=== PATIENT | male | born 1965 | race Caucasian/White ===

== ENCOUNTER → 2016-09-24 | Outpatient (CLI) | payer OTHER ==
--- NOTE | 2016-09-24 15:36 | XR ---
EXAMINATION TYPE: XR hand complete LT DATE OF EXAM: 09/24/2016 3:31 PM COMPARISON: NONE HISTORY: Pain TECHNIQUE: Three views are submitted. FINDINGS: The osseous structures are intact. The joint spaces are preserved and there is no acute fracture or dislocation. Arthropathy of the radioulnar joint noted. IMPRESSION: 1. No definite acute fracture or dislocation if symptoms persist, follow-up study in 7 to 10 days wo uld be suggested
--- NOTE | 2016-09-24 15:37 | XR ---
EXAMINATION TYPE: XR sacrum coccyx DATE OF EXAM: 09/24/2016 3:31 PM COMPARISON: NONE HISTORY: Pain Three views are submitted. Sacrum is intact. SI joints are symmetric. Coccyx appears to be intact. Visualized pelvic structures intact. IMPRESSION: 1. No acute fracture.
--- NOTE | 2016-09-24 15:38 | XR ---
EXAM TYPE: LUMBAR SPINE X RAY SERIES COMPARISON: NONE HISTORY: Pain TECHNIQUE: 3 views are submitted. FINDINGS: Alignment is anatomic. The pedicles are intact. The transverse processes are intact. There is no s pondylolysis or spondylolisthesis. Hypertrophic change of the facets noted. Anterior hypertrophic sp urs are seen involving the thoracolumbar junction upper lumbar spine. IMPRESSION: 1. No compression deformity. Hypertrophic change and facet arthropathy at multiple levels.
--- NOTE | 2016-09-24 15:38 | XR ---
EXAMINATION TYPE: XR pelvis AP view DATE OF EXAM ORDERED: 09/24/2016 3:31 PM HISTORY: S30.0XXA contusion lower back pelvis S60.22A hand contusion. COMPARISON: None. FINDINGS: No fracture, dislocation or other acute osseous lesion is seen. There is a pseudocyst in t he right humeral head. IMPRESSION: NO ACUTE OSSEOUS LESION.
== END | disposition home or self-care (01) ==
LOC: RADXRMAIN 15:03
PROVIDERS: ATTEND Emergency Medicine
DX: M46.86 Other specified inflammatory spondylopathies, lumbar region (principal); S60.222A Contusion of left hand, initial encounter; S30.0XXA Contusion of lower back and pelvis, initial encounter
CPT/HCPCS: 72100; 72170; 72220

== ENCOUNTER → 2016-09-30 | Outpatient (CLI) | payer OTHER ==
--- NOTE | 2016-09-30 10:07 | XR ---
EXAMINATION TYPE: XR wrist complete LT DATE OF EXAM: 09/30/2016 10:03 AM COMPARISON: NONE HISTORY: Pain and swelling TECHNIQUE: Four views submitted. FINDINGS: The osseous structures are intact. Hypertrophic change and narrowing of the radioulnar joint. And the re is no acute fracture or dislocation. Tiny bony density along the volar aspect of the wrist. IMPRESSION: 1. Tiny bony density along the volar aspect of the wrist. Recommend follow-up CT or MRI to assess for tiny chip or avulsion fracture.
== END | disposition home or self-care (01) ==
LOC: RADXRMAIN 09:40
PROVIDERS: ATTEND Emergency Medicine
DX: R93.7 Abnormal findings on diagnostic imaging of other parts of musculoskeletal system (principal)

== ENCOUNTER → 2016-10-08 | Outpatient (CLI) | payer OTHER ==
--- NOTE | 2016-10-09 11:48 | MR ---
MR left wrist HISTORY: Left wrist pain, lump Multiplanar multisequence imaging through the left wrist correlated to plain film 30 Sep 2016 There is a focal area of increased signal on T1 and T2-weighted sequences within the region of the th enar eminence which is somewhat poorly demarcated measuring approximately 2.2 x 1.4 x 1 cm at the lev el of the overlying skin marker noting the patient's symptom site. Bone marrow signal is maintained w ith the exception of some focal increased signal at the proximal lunate may represent a small geode. Tracheal fibrocartilage, lunotriquetral, scapholunate ligaments thought to be intact. Flexor and exte nsor tendons are intact. Focal fluid signal present at the level distal to the ulna slightly ball are measuring approximately 14 mm x 7 mm x 9 mm shows increased signal on T1 and T2-weighted sequences m ay represent a ganglion cyst. Some erosion is present at the triquetrum proximally, this may represen t ganglion cyst. Smaller cystic focus present adjacent to the pisiform. Mild arthropathy changes as n oted on plain film. IMPRESSION: Findings likely represent focal hematoma corresponding to patient's pain and trauma, foll ow-up clinically. Possible ganglion cyst.
== END | disposition home or self-care (01) ==
LOC: RADMRIMAIN 18:44
PROVIDERS: ATTEND Emergency Medicine
DX: S60.222D Contusion of left hand, subsequent encounter (principal); S30.0XXD Contusion of lower back and pelvis, subsequent encounter

== ENCOUNTER 2018-05-01 07:02 | Day surgery (SDC) | payer BC ==
[2018-04-27 11:35] VITALS: BMI 33.9
[~2018-05-01 07:02] MED LIST: LACTATED RINGERS 1,000 ML IV SCH
[2018-05-01 07:21] VITALS: RESP 16; TEMP 98
[2018-05-01 07:35] LABS: Glucose,Whole Blood 127 mg/dL (75-99)
[2018-05-01] MEDS ORDERED: LIDOCAINE 1% 20 ML VIAL (10MG/ML) FOR IV START INTRADERMA ONE (07:40)
[2018-05-01] MEDS ORDERED: PROPOFOL 10 MG/ML 20 ML VIAL IV ONE (08:27)
--- NOTE | 2018-05-01 08:34 | P.GSHP ---
History of Present Illness H&P Date: 05/01/18 Chief Complaint: Screening colonoscopy This is a 52-year-old male who presents today for screening colonoscopy. Patient denies any significant GI complaints. Past Medical History Past Medical History: Diabetes Mellitus, Hypertension History of Any Multi-Drug Resistant Organisms: None Reported Additional Past Surgical History / Comment(s): VASECTOMY Past Anesthesia/Blood Transfusion Reactions: No Reported Reaction Smoking Status: Never smoker - Past Family History Mother Family Medical History: No Reported History Medications and Allergies Home Medications Medication Instructions Recorded Confirmed Type amLODIPine BESYLATE/BENAZEPRIL 1 cap PO DAILY 04/27/18 05/01/18 History [amLODIPine BESYLATE/BENAZEPRIL 5-40 mg] metFORMIN HCL [Glucophage] 500 mg PO DAILY 04/27/18 05/01/18 History Allergies Allergy/AdvReac Type Severity Reaction Status Date / Time Penicillins Allergy Unknown Verified 05/01/18 07:20 Childhood Surgical - Exam Vital Signs Temp Pulse Resp BP Pulse Ox 98.0 F 82 16 167/96 96 05/01/18 07:15 05/01/18 07:15 05/01/18 07:15 05/01/18 07:15 05/01/18 07:15 - General well developed, well nourished, no distress - Eyes PERRL - ENT normal pinna - Neck no masses - Respiratory normal expansion - Cardiovascular Rhythm: regular - Abdomen Abdomen: soft, non tender Results - Labs Abnormal Lab Results - Last 24 Hours (Table) 05/01/18 Range/Units 07:31 POC Glucose (mg/dL) 127 H (75-99) mg/dL Assessment and Plan Assessment: We'll perform screening colonoscopy.
--- NOTE | 2018-05-01 08:46 | P.OP ---
Date of Procedure: 05/01/18 Preoperative Diagnosis: Screening colonoscopy Postoperative Diagnosis: Diverticulosis Procedure(s) Performed: Colonoscopy Anesthesia: MAC Surgeon: Abhay Reynolds Pathology: none sent Condition: stable Disposition: PACU Description of Procedure: The patient's placed on the endoscopy table in the lateral position. He received IV sedation. Digital rectal exam was performed which revealed no abnormalities. Flexible colonoscope was then placed patient anus and passed throughout the entire colon. The ileocecal valve was visualized. The cecum, ascending and transverse colon appeared normal. In the descending and sigmoid there was mild diverticular changes. Scope was then brought back the rectum and this appeared normal. Scope was withdrawn for patient.
[2018-05-01 09:09] VITALS: BP 137/90; PULSE 74
== END 2018-05-01 09:25 | disposition home or self-care (01) ==
LOC: ORWHC2ENDO 07:02
PROVIDERS: ATTEND Surgery
DX: Z12.11 Encounter for screening for malignant neoplasm of colon (principal); E11.9 Type 2 diabetes mellitus without complications; I10 Essential (primary) hypertension; Z88.0 Allergy status to penicillin; Z79.899 Other long term (current) drug therapy
CPT/HCPCS: J2704; G0121; 45378

== ENCOUNTER → 2020-03-26 | Outpatient (CLI) | payer BC ==
--- NOTE | 2020-03-27 09:09 | XR ---
EXAMINATION TYPE: XR foot complete LT DATE OF EXAM: 03/26/2020 COMPARISON: NONE HISTORY: Pain TECHNIQUE: Three views are submitted. FINDINGS: Mineralization normal. There is questionable deformity involving the base of the second metatarsal.. Arthropathy of the first MTP. Calcaneal spurs noted. IMPRESSION: 1. Questionable deformity of the base of the second metatarsal. The patient is point tender would rec ommend CT scan for further evaluation to exclude fracture. A Yellow level critical message alert has been initiated for Geoffrey White DO via the [employer] Critical Results System on 03/27/2020 9:06 AM. This message alert has been sent to Geoffrey White DO vi a the preferences provided by the clinician for the receipt of Radiology Critical Findings. Message I D [id number].
== END | disposition home or self-care (01) ==
LOC: RADXRMAIN 16:55
PROVIDERS: ATTEND Family Medicine
DX: M77.42 Metatarsalgia, left foot (principal)

== ENCOUNTER 2020-07-24 07:58 | Emergency (ER) | payer BC ==
[2020-07-24 08:19] LABS: Glucose,Whole Blood 228 mg/dL (75-99)
[2020-07-24] MEDS ORDERED: SODIUM CHLORIDE 0.9% 1,000 ML IV STA (08:26)
[2020-07-24] MEDS ORDERED: ONDANSETRON 4 MG/2 ML VIAL IVP STA (08:26)
[2020-07-24] MEDS ORDERED: MECLIZINE 12.5 MG TAB PO STA (08:27)
[2020-07-24] MEDS ORDERED: LORazepam 2 MG/ML INJ IV STA (08:30)
--- NOTE | 2020-07-24 08:49 | ED ---
General Adult HPI - General Chief complaint: Weakness Stated complaint: Weakness Time Seen by Provider: 07/24/20 08:08 Source: patient, family Mode of arrival: wheelchair Limitations: no limitations - History of Present Illness Initial comments: 54-year-old male with a past medical history of NIDDM, hypertension presents to the emergency room for a chief complaint of dizziness x 2 hours. Patient reports he had just gotten to work and started walking down the hallway when he started to feel dizzy. [place] like the room was spinning. Patient became very nauseous and sat down. He thought maybe his blood sugar was low and ate a candy bar. However patient began vomiting and dizziness continued. His brother drove him home however patient did not feel he could walk into the house because of this dizziness so presented to the emergency room instead. Patient denies any chest pain. Denies headache or abdominal pain. Denies any diarrhea associated with that vomiting. Denies fevers. Patient has no other complaints at this time including shortness of breath, chest pain, abdominal pain, nausea or vomiting, headache, or visual changes. - Related Data Home Medications Medication Instructions Recorded Confirmed amLODIPine BESYLATE/BENAZEPRIL 1 cap PO DAILY 04/27/18 07/24/20 [amLODIPine BESYLATE/BENAZEPRIL 5-40 mg] metFORMIN HCL [Glucophage] 1,000 mg PO BID 04/27/18 07/24/20 Atorvastatin [Lipitor] 10 mg PO HS 07/24/20 07/24/20 Empagliflozin [Jardiance] 10 mg PO HS 07/24/20 07/24/20 lisinopriL [Zestril] 5 mg PO HS 07/24/20 07/24/20 Previous Rx's Medication Instructions Recorded Meclizine [Antivert] 25 mg PO TID #20 tab 07/24/20 Allergies Allergy/AdvReac Type Severity Reaction Status Date / Time Penicillins Allergy Unknown Verified 07/24/20 08:46 Childhood Review of Systems ROS Statement: Those systems with pertinent positive or pertinent negative responses have been documented in the HPI. ROS Other: All systems not noted in ROS Statement are negative. Past Medical History Past Medical History: Diabetes Mellitus, Hypertension History of Any Multi-Drug Resistant Organisms: None Reported Additional Past Surgical History / Comment(s): VASECTOMY Past Anesthesia/Blood Transfusion Reactions: No Reported Reaction Past Psychological History: No Psychological Hx Reported Smoking Status: Never smoker Past Alcohol Use History: Rare Past Drug Use History: None Reported - Past Family History Mother Family Medical History: No Reported History General Exam Limitations: no limitations General appearance: alert, in no apparent distress Head exam: Present: atraumatic Eye exam: Present: normal appearance, PERRL, EOMI. Absent: scleral icterus, conjunctival injection, periorbital swelling ENT exam: Present: normal exam, mucous membranes moist Neck exam: Present: normal inspection, full ROM. Absent: tenderness, meningismus, lymphadenopathy Respiratory exam: Present: normal lung sounds bilaterally. Absent: respiratory distress, wheezes, rales, rhonchi, stridor Cardiovascular Exam: Present: regular rate, normal rhythm, normal heart sounds. Absent: systolic murmur, diastolic murmur, rubs, gallop, clicks GI/Abdominal exam: Present: soft, normal bowel sounds. Absent: distended, tenderness, guarding, rebound, rigid Neurological exam: Present: alert, oriented X3 Expanded Patient oriented to: Present: person, place, time Speech: Present: fluid speech Cranial nerves: EOM's Intact: Normal, Tongue Deviation: Normal, Nystagmus: Normal, Facial Sensation: Normal Cerebellar function: Finger to Nose: Normal, Heel to [place]: Normal Upper motor neuron: Pronator Drift: Normal Sensory exam: Upper Extremity Light Touch: Normal, Upper Extremity Pin Prick: Normal, Lower Extremity Light Touch: Normal, Lower Extremity Pin Prick: Normal Motor strength exam: RUE: 5, LUE: 5, RLE: 5, LLE: 5 Course Vital Signs 07/24/20 07/24/20 07/24/20 07:59 08:08 09:11 Temperature 97.4 F L Pulse Rate 71 75 Respiratory 18 16 16 Rate Blood Pressure 175/102 144/89 O2 Sat by Pulse 99 100 Oximetry 07/24/20 10:13 Temperature Pulse Rate 73 Respiratory 16 Rate Blood Pressure 140/96 O2 Sat by Pulse 100 Oximetry EKG Findings - EKG Comments: EKG Findings:: Normal sinus rhythm, ventricular rate 60, NC interval 166, QTc 440 Medical Decision Making - Medical Decision Making Vitals are stable. Patient initially had difficulty standing because he became very nauseous. He felt the room was spinning. Laboratory evaluation was ini tiated. CBC did reveal hemoconcentration likely secondary to dehydration, patient given fluids. CMP also revealed mild hyperglycemia, patient noted suggestive eating a candy bar. Troponin negative. EKG nonischemic. X-ray was obtained which showed no acute cardiopulmonary process. CT neck with contrast showed widely patent vertebral and carotid arteries. CT head shows no large vessel intracranial arterial occlusion, significant stenosis, or aneurysmal change. There is small foci of air within the bilateral cavernous sinuses. Likely secondary to peripheral line placement. Pt was given fluids and several medications for dizziness. He had significant permanent symptoms. normal gait. No difficulty walking. No ataxia. Patient feeling well to go home. We will start patient on meclizine and have him follow-up with his primary care provider. Recommend that he return for any fevers or headaches given the air in cavernous sinuses however likely secondary to peripheral IV placement. He will return for any other worsening symptoms as well. Upon discharge patient did request a Covid test for his work. We will call him with the results. - Lab Data Result diagrams: 07/24/20 08:30 07/24/20 08:30 Lab Results 07/24/20 07/24/20 07/24/20 Range/Units 08:17 08:30 08:30 WBC 5.4 (3.8-10.6) k/uL RBC 6.27 H (4.30-5.90) m/uL Hgb 18.6 H (13.0-17.5) gm/dL Hct 53.1 H (39.0-53.0) % MCV 84.7 (80.0-100.0) fL MCH 29.7 (25.0-35.0) pg MCHC 35.0 (31.0-37.0) g/dL RDW 13.1 (11.5-15.5) % Plt Count 153 (150-450) k/uL MPV 7.3 Neutrophils % 66 % Lymphocytes % 26 % Monocytes % 5 % Eosinophils % 2 % Basophils % 1 % Neutrophils # 3.6 (1.3-7.7) k/uL Lymphocytes # 1.4 (1.0-4.8) k/uL Monocytes # 0.3 (0-1.0) k/uL Eosinophils # 0.1 (0-0.7) k/uL Basophils # 0.0 (0-0.2) k/uL PT 10.1 (9.0-12.0) sec INR 0.9 (<1.2) APTT 20.7 L (22.0-30.0) sec Sodium (137-145) mmol/L Potassium (3.5-5.1) mmol/L Chloride (98-107) mmol/L Carbon Dioxide (22-30) mmol/L Anion Gap mmol/L BUN (9-20) mg/dL Creatinine (0.66-1.25) mg/dL Est GFR (CKD-EPI)AfAm (>60 ml/min/1.73 sqM) Est GFR (CKD-EPI)NonAf (>60 ml/min/1.73 sqM) Glucose (74-99) mg/dL POC Glucose (mg/dL) 228 H (75-99) mg/dL POC Glu Social Service Agency Director ID Alyse Mathews Calcium (8.4-10.2) mg/dL Magnesium (1.6-2.3) mg/dL Total Bilirubin (0.2-1.3) mg/dL AST (17-59) U/L ALT (4-49) U/L Alkaline Phosphatase (38-126) U/L Troponin I (0.000-0.034) ng/mL Total Protein (6.3-8.2) g/dL Albumin (3.5-5.0) g/dL 07/24/20 07/24/20 Range/Units 08:30 08:30 WBC (3.8-10.6) k/uL RBC (4.30-5.90) m/uL Hgb (13.0-17.5) gm/dL Hct (39.0-53.0) % MCV (80.0-100.0) fL MCH (25.0-35.0) pg MCHC (31.0-37.0) g/dL RDW (11.5-15.5) % Plt Count (150-450) k/uL MPV Neutrophils % % Lymphocytes % % Monocytes % % Eosinophils % % Basophils % % Neutrophils # (1.3-7.7) k/uL Lymphocytes # (1.0-4.8) k/uL Monocytes # (0-1.0) k/uL Eosinophils # (0-0.7) k/uL Basophils # (0-0.2) k/uL PT (9.0-12.0) sec INR (<1.2) APTT (22.0-30.0) sec Sodium 139 (137-145) mmol/L Potassium 4.0 (3.5-5.1) mmol/L Chloride 104 (98-107) mmol/L Carbon Dioxide 25 (22-30) mmol/L Anion Gap 10 mmol/L BUN 21 H (9-20) mg/dL Creatinine 1.00 (0.66-1.25) mg/dL Est GFR (CKD-EPI)AfAm >90 (>60 ml/min/1.73 sqM) Est GFR (CKD-EPI)NonAf 86 (>60 ml/min/1.73 sqM) Glucose 266 H (74-99) mg/dL POC Glucose (mg/dL) (75-99) mg/dL POC Glu Social Service Agency Director ID Calcium 9.3 (8.4-10.2) mg/dL Magnesium 2.0 (1.6-2.3) mg/dL Total Bilirubin 0.7 (0.2-1.3) mg/dL AST 32 (17-59) U/L ALT 41 (4-49) U/L Alkaline Phosphatase 78 (38-126) U/L Troponin I <0.012 (0.000-0.034) ng/mL Total Protein 7.3 (6.3-8.2) g/dL Albumin 4.5 (3.5-5.0) g/dL Disposition Clinical Impression: Dizziness Disposition: HOME SELF-CARE Condition: Good Instructions (If sedation given, give patient instructions): Vertigo (ED) Additional Instructions: Please take medication as directed. Drink plenty of fluids. If you have any worsening symptoms such as headache, fever, worsening dizziness, or any other concerns return immediately to the emergency room. Prescriptions: Meclizine [Antivert] 25 mg PO TID #20 tab Is patient prescribed a controlled substance at d/c from ED?: No Referrals: Geoffrey White DO [Primary Care Provider] - 1-2 days Time of Disposition: 10:56
[2020-07-24 08:50] VITALS: RESP 16; TEMP 97.4
--- NOTE | 2020-07-24 09:02 | XR ---
EXAMINATION TYPE: XR chest 2V DATE OF EXAM: 07/24/2020 COMPARISON: None HISTORY: Weakness and dizziness TECHNIQUE: Frontal and lateral views of the chest are obtained. FINDINGS: There is no focal air space opacity, pleural effusion, or pneumothorax seen. The cardiac silhouette size is within normal limits. The osseous structures are intact. There are overlying saud ds. IMPRESSION: No acute cardiopulmonary process.
[2020-07-24 09:04] LABS: Basophils % (A) 1 %; Eosinophils # (A) 0.1 k/uL (0-0.7); Eosinophils % (A) 2 %; HCT 53.1 % (39.0-53.0); HGB 18.6 gm/dL (13.0-17.5); Lymphocytes # (A) 1.4 k/uL (1.0-4.8); Lymphocytes % (A) 26 %; MCH 29.7 pg (25.0-35.0); MCV 84.7 fL (80.0-100.0); Mean Platelet Volume 7.3; Monocytes # (A) 0.3 k/uL (0-1.0); Monocytes % (A) 5 %; Neutrophils # (A) 3.6 k/uL (1.3-7.7); Neutrophils % (A) 66 %; Platelet Count 153 k/uL (150-450); RBC 6.27 m/uL (4.30-5.90); RDW 13.1 % (11.5-15.5); WBC 5.4 k/uL (3.8-10.6)
[2020-07-24 09:09] LABS: ALT 41 U/L (4-49); AST 32 U/L (17-59); African American GFR (CKD) >90 (>60 ml/min/1.73 sqM); Albumin 4.5 g/dL (3.5-5.0); Alkaline Phosphatase 78 U/L (38-126); Anion Gap 10 mmol/L; Blood Urea Nitrogen 21 mg/dL (9-20); Calcium 9.3 mg/dL (8.4-10.2); Carbon Dioxide 25 mmol/L (22-30); Chloride 104 mmol/L (98-107); Glucose 266 mg/dL (74-99); Non-African American GFR(CKD) 86 (>60 ml/min/1.73 sqM); Sodium 139 mmol/L (137-145); Total Bilirubin 0.7 mg/dL (0.2-1.3); Total Protein 7.3 g/dL (6.3-8.2)
[2020-07-24 09:31] LABS: INR 0.9 (<1.2); Prothrombin Time 10.1 sec (9.0-12.0)
[2020-07-24 09:34] LABS: Partial Thromboplastin Time 20.7 sec (22.0-30.0)
--- NOTE | 2020-07-24 09:44 | CT ---
EXAMINATION TYPE: CT brain wo con DATE OF EXAM: 07/24/2020 COMPARISON: None HISTORY: Dizziness and vomiting CT DLP: 1191.8 mGycm Automated exposure control for dose reduction was used. Helical imaging through the brain FINDINGS: The calvarium is intact. Possible polyp present within the left maxillary sinus. Mastoid air cells ar e well aerated. There is no hemorrhage or hydrocephalus. Orbits show symmetric appearance. IMPRESSION: NO ACUTE ABNORMALITIES EVIDENT, CONSIDER MRI INDICATED.
--- NOTE | 2020-07-24 10:11 | CT ---
EXAMINATION TYPE: CT angio head neck DATE OF EXAM: 07/24/2020 COMPARISON: Correlation CT brain same day HISTORY: 54-year-old male Dizziness and vomiting TECHNIQUE: Contiguous axial scanning of the head and neck performed with IV Contrast, patient injecte d with 65 mL of Isovue 370. Coronal/sagittal MIP reconstructions performed. 3-D reconstructions gener ated on a dedicated independent workstation. CT DLP: 580.1 mGycm Automated exposure control for dose reduction was used. FINDINGS: NECK: Conventional arch vessel branching anatomy. The vertebral arteries are codominant and patent throughout their course. The right and left common and internal carotid arteries are widely patent. 5 mm hypodense nodule right lobe of the thyroid gland. Visualized upper lungs are clear. HEAD: Small foci of air within the bilateral cavernous sinuses may be due to peripheral line placement. Incidental hypoplastic A-1 segment left anterior cerebral artery suggesting congenital variation. The vertebral and basilar arteries as well as the anterior circulation appear patent. No aneurysm or change identified IMPRESSION: 1. NECK: Widely patent vertebral and carotid arteries of the neck. 2. HEAD: No large vessel intracranial arterial occlusion, significant stenosis, or aneurysmal change. Note, small foci of air within the bilateral cavernous sinuses. Findings probably a consequence of p eripheral line placement and air unintentionally introduced. Correlate to exclude the possibility of IVDA.
[2020-07-24 11:46] VITALS: BP 140/90; PULSE 89
[2020-07-25 18:22] LABS: Hemoglobin A1C 10.3 % (4.0-6.0)
== END 2020-07-24 11:15 | disposition home or self-care (01) ==
LOC: EC 07:58
DX: R42 Dizziness and giddiness (principal); R19.7 Diarrhea, unspecified; E11.9 Type 2 diabetes mellitus without complications; I10 Essential (primary) hypertension
CPT/HCPCS: 36415 ×2; 93005; 80053; 83735; 84484; 85025; 85610; 85730; 87635; 71046; 70496; 70450; 70498; 99284; 96374; 96375; J2060; J2405; Q9967; 83036

== ENCOUNTER 2021-04-13 10:24 | Emergency (ER) | payer BC ==
[2021-04-13 12:08] VITALS: RESP 18
[2021-04-13] MEDS ORDERED: SODIUM CHLORIDE 0.9% 50 ML IVPB ONE (14:30)
[2021-04-13] MEDS ORDERED: CASIRIVIMAB (REGN10933) (EUA) 600 MG, IMDEVIMAB (REGN10987) (EUA) 600 MG in SODIUM CHLO... IVPB ONE (14:30)
[2021-04-13] MEDS ORDERED: CASIRIVIMAB/IMDEVIMAB (EUA) 1,200 MG in SODIUM CHLORIDE 0.9% 100 ML IVPB ONE (14:30)
[2021-04-13 15:29] VITALS: BP 136/78; PULSE 83; TEMP 97.7
--- NOTE | 2021-04-13 15:33 | ED ---
URI HPI - General Chief Complaint: Upper Respiratory Infection Stated Complaint: Covid +, wants BAM Time Seen by Provider: 04/13/21 13:21 Source: patient, RN notes reviewed Mode of arrival: ambulatory Limitations: no limitations - History of Present Illness Initial Comments: Patient is a 55-year-old male with history of diabetes, hypertension, presenting to the emergency department requesting monoclonal antibodies. Patient states about 3 days ago started having a slight cough, runny nose, tested positive for covid on a home test. He states yesterday he went to a local urgent care to get tested again, it was positive as well. His doctor recommended coming in for monoclonal antibodies. He denies any chest pain or short of breath, no fevers or chills, no abdominal complaints, no vomiting or diarrhea. He states he feels well. He has no further complaints. His vital signs are stable upon arrival. - Related Data Home Medications Medication Instructions Recorded Confirmed amLODIPine BESYLATE/BENAZEPRIL 1 cap PO DAILY 04/27/18 04/13/21 [amLODIPine BESYLATE/BENAZEPRIL 5-40 mg] metFORMIN HCL [Glucophage] 500 mg PO BID 04/27/18 04/13/21 lisinopriL [Zestril] 10 mg PO HS 04/13/21 04/13/21 Allergies Allergy/AdvReac Type Severity Reaction Status Date / Time Penicillins Allergy Unknown Verified 04/13/21 14:30 Childhood Review of Systems ROS Statement: Those systems with pertinent positive or pertinent negative responses have been documented in the HPI. ROS Other: All systems not noted in ROS Statement are negative. Past Medical History Past Medical History: Diabetes Mellitus, Hypertension History of Any Multi-Drug Resistant Organisms: None Reported Past Surgical History: No Surgical Hx Reported Additional Past Surgical History / Comment(s): VASECTOMY Past Anesthesia/Blood Transfusion Reactions: No Reported Reaction Past Psychological History: No Psychological Hx Reported Smoking Status: Never smoker Past Alcohol Use History: Rare Past Drug Use History: None Reported - Past Family History Mother Family Medical History: No Reported History General Exam - General Exam Comments Initial Comments: GENERAL: Patient is well-developed and well-nourished. Patient is nontoxic and in no acute distress. HEAD: Atraumatic, normocephalic. EYES: Pupils equal round and reactive to light, extraocular movements intact, sclera anicteric, conjunctiva are normal. Eyelids were unremarkable. ENT: Moist mucous membranes. NECK: Normal range of motion, supple without lymphadenopathy or JVD. LUNGS: Unlabored respirations. Breath sounds clear to auscultation bilaterally and equal. No wheezes rales or rhonchi. HEART: Regular rate and rhythm without murmurs, rubs or gallops. ABDOMEN: Soft, nontender, normoactive bowel sounds. No guarding, no rebound. No masses appreciated. MUSCULOSKELETAL: Normal extremities with adequate strength and normal range of motion, no pitting or edema. No clubbing or cyanosis. NEUROLOGICAL: Patient is alert and oriented x 3. SKIN: Warm, Dry, normal turgor, no rashes or lesions noted. Limitations: no limitations Course Vital Signs 04/13/21 04/13/21 12:06 15:27 Temperature 98.5 F 97.7 F Pulse Rate 88 83 Respiratory 18 18 Rate Blood Pressure 146/97 136/78 O2 Sat by Pulse 98 95 Oximetry Medical Decision Making - Medical Decision Making Patient is a 55-year-old male here requesting monoclonal antibodies. He has slight cough, slight congestion, test positive yesterday at local urgent care. No other alarming symptoms. His vital signs are stable here. He received monoclonal antibodies, no adverse side effects. Patient stable for discharge. He can follow-up with his primary care. Disposition Clinical Impression: COVID-19 Disposition: HOME SELF-CARE Condition: Stable Instructions (If sedation given, give patient instructions): Coronavirus Disease 2019 (COVID-19) Additional Instructions: Please return to the Emergency Department if symptoms worsen or any other concerns. May take Tylenol or Motrin for her symptoms. Follow-up with your primary care as needed. Is patient prescribed a controlled substance at d/c from ED?: No Referrals: Geoffrey White DO [Primary Care Provider] - 1-2 days Time of Disposition: 15:33
== END 2021-04-13 15:52 | disposition home or self-care (01) ==
LOC: EC 10:24
DX: U07.1 COVID-19 (principal); I10 Essential (primary) hypertension; E11.9 Type 2 diabetes mellitus without complications; Z88.0 Allergy status to penicillin; Z79.899 Other long term (current) drug therapy; Z79.84 Long term (current) use of oral hypoglycemic drugs
CPT/HCPCS: 99283; 96365; Q0243

== ENCOUNTER 2023-09-19 10:03 | Day surgery (SDC) | payer BC ==
[~2023-09-19 10:03] MED LIST changes: +ALPRAZolam 0.25 MG TAB PO PRN; +ALPRAZolam 0.5 MG TAB PO PRN; +HEPARIN SODIUM,PORCINE (1 ML) 2,500 UNIT in SODIUM CHLORIDE 0.9% 250 ML IRRIGATION PRN; +HEPARIN SODIUM,PORCINE 10,000 UNIT in SODIUM CHLORIDE 0.9% 1,000 ML IRRIGATION PRN; -LACTATED RINGERS 1,000 ML IV SCH; +NITROGLYCERIN SL TABS 0.4 MG TAB SUBLINGUAL PRN
[2023-09-19] MEDS: SODIUM CHLORIDE 0.9% 1,000 ML IV ONE (10:12)
[2023-09-19 10:33] LABS: Glucose,Whole Blood 147 mg/dL (70-110)
[2023-09-19 11:06] LABS: African American GFR (CKD) >90 (>60 ml/min/1.73 sqM); Anion Gap 7 mmol/L; Blood Urea Nitrogen 15 mg/dL (9-20); Calcium 8.9 mg/dL (8.4-10.2); Carbon Dioxide 23 mmol/L (22-30); Chloride 107 mmol/L (98-107); Glucose 153 mg/dL (74-99); Non-African American GFR(CKD) >90 (>60 ml/min/1.73 sqM); Sodium 137 mmol/L (137-145)
[2023-09-19 11:08] LABS: Potassium 4.4 mmol/L (3.5-5.1)
[2023-09-19 11:30] LABS: Basophils % (A) 1 %; Eosinophils # (A) 0.1 k/uL (0-0.7); Eosinophils % (A) 2 %; HCT 54.8 % (39.0-53.0); HGB 18.4 gm/dL (13.0-17.5); Lymphocytes # (A) 1.3 k/uL (1.0-4.8); Lymphocytes % (A) 21 %; MCH 28.7 pg (25.0-35.0); MCHC 33.5 g/dL (31.0-37.0); MCV 85.7 fL (80.0-100.0); Monocytes # (A) 0.4 k/uL (0-1.0); Monocytes % (A) 7 %; Neutrophils # (A) 4.2 k/uL (1.3-7.7); Neutrophils % (A) 69 %; Platelet Count 157 k/uL (150-450); RDW 13.4 % (11.5-15.5); WBC 6.1 k/uL (3.8-10.6)
[2023-09-19] MEDS ORDERED: HEPARIN SODIUM 1,000 UN/ML (10ML VL) ONE (12:02)
[2023-09-19] MEDS: MIDAZOLAM 2 MG/2 ML VIAL IVP ONE (12:20)
[2023-09-19] MEDS: LIDOCAINE 1% INJ 10MG/ML (20 ML MDV) SQ ONE (12:22)
[2023-09-19] MEDS: VERAPAMIL SYRINGE (5 MG/10 ML) INTRAARTER ONE (12:23)
[2023-09-19] MEDS: HEPARIN SODIUM 1,000 UN/ML (10ML VL) IV ONE (12:26)
[2023-09-19] MEDS ORDERED: PRASUGREL 10 MG TAB ONE (12:50)
[2023-09-19] MEDS: PRASUGREL 10 MG TAB PO ONE (12:51)
[2023-09-19] MEDS: NITROGLYCERIN 1000MCG/10ML SYRINGE INTRACORON ONE (12:52)
[2023-09-19] MEDS: IOPAMIDOL-370 100ML BTL INJ ONE ×2 (12:54→13:16)
[2023-09-19] MEDS ORDERED: ASPIRIN 325 MG TAB PO PRN (13:07)
[2023-09-19] MEDS ORDERED: ATROPINE SULFATE 0.1 MG/ML 10ML SYRINGE IV PRN (13:08)
[2023-09-19] MEDS ORDERED: ZOLPIDEM 5 MG TAB PO PRN (13:08)
[2023-09-19] MEDS ORDERED: NITROGLYCERIN SL TABS 0.4 MG TAB SUBLINGUAL PRN (13:08)
[2023-09-19] MEDS ORDERED: MAG HYDROX/AL HYDROX/SIMETH 30 ML CUP PO PRN (13:08)
[2023-09-19] MEDS ORDERED: RX INFO: IV CONTRAST WAS GIVEN 1 EACH MISC MISCELLANE PRN (13:08)
--- NOTE | 2023-09-19 13:14 | P.PCN ---
Date of Procedure: 09/19/23 Operative Findings: CARDIAC CATHETERIZATION AND PERCUTANEOUS CORONARY INTERVENTION PERFORMING PHYSICIAN: Qamar Lemos MD, [facility] PROCEDURE PERFORMED: 1. Selective right and left coronary angiogram 2. Left heart catheterization 3. Successful stenting of mid LAD using 2.75 x 23 mm Xience JENNIFER with an exce llent angiographic results with adjunctive use of intravascular imaging 4. Ultrasound-guided access of the right radial INDICATION: Severe CAD identified on coronary CTA COMPLICATION: None APPROACH: Right radial artery LEVEL OF SEDATION: Moderate with the sedation time off 46 minutes PROCEDURE DESCRIPTION: After obtaining informed consent the patient was brought to the cardiac [facility] Planning Director. The right radial artery was cannulated using micropuncture technique under ultrasound guidance the micropuncture wire passed easily then I placed a 6 [place] right radial sheath. 2 mg of verapamil intra-arterial and 5000's of heparin intravenous given with continuous ACT monitoring. Selective right and left coronary angiogram performed using JR4 and JL 3.5 catheters. Left heart catheterization was performed using the JR4 catheter which crossed the aortic valve. After that we decided to intervene on the LAD. Anticoagulation continued using heparin with continuous ACT monitoring. I did engage the left main using JL 3.5 guiding catheter. I did wired the LAD using a whisper wire with the backup support of super cross 45 angle catheter. Subsequently the wire was advanced to the distal LAD. Intravascular ultrasound was performed and showed a diameter around 2.25 mm for the mid LAD and about 3.5 for the proximal to mid LAD. Predilatation was performed using 2 mm balloon before I deployed 2.75 x 23 mm stent which was postdilated proximally using 3.5 mm noncompliant balloon with a final angiogram showing excellent angiographic results with YENIFER-3 flow and the procedure was completed with no complication. SELECTIVE CORONARY ANGIOGRAM: The right coronary artery: Large caliber vessel and a dominant vessel with mild disease only Left main: Is angiographically normal. Bifurcates into an LCx and LAD The left circumflex: Large-caliber vessel nondominant vessel. The LCx is angiographically normal. Gives rise into the first and second and third obtuse marginal branches all appear to be angiographically normal The left anterior descending artery: Large caliber vessel proximally. The mid LAD is occluded. The LAD gives rise into a large diagonal branch which trifurcates into 3 subbranches. The diagonal branch has intermediate to severe disease. HEMODYNAMICS: The LVEDP was 8 mmHg with no significant gradient across aortic valve CONCLUSION: Subtotally occluded/occluded LAD in the midportion with a focal lesion. I performed PCI of the LAD as described above Intermediate to severe disease involving a large diagonal branch POSTPROCEDURE MANAGEMENT: 1. Dual antiplatelet therapy using aspirin and Effient for at least 6 month 2. Aggressive cholesterol control 3. Follow-up with the patient
[2023-09-19] MEDS ORDERED: hydrALAZINE HCL 20 MG/ML 1 ML VIAL IVP PRN (14:12)
[2023-09-19] MEDS: ASPIRIN 325 MG TAB PO STA (14:16)
[2023-09-19] MEDS: SODIUM CHLORIDE 0.9% 1,000 ML in EMPTY BAG 1 BAG IV SCH ×2 (14:17→14:34)
[2023-09-19 17:10] LABS: Glucose,Whole Blood 167 mg/dL (70-110)
[2023-09-19] MEDS ORDERED: lisinopriL 10 MG TAB PO SCH (21:00)
[2023-09-19 21:07] LABS: Glucose,Whole Blood 170 mg/dL (70-110)
[2023-09-19] MEDS: ATORVASTATIN 80 MG TAB PO SCH (21:26)
[2023-09-20 07:16] LABS: African American GFR (CKD) >90 (>60 ml/min/1.73 sqM); Non-African American GFR(CKD) >90 (>60 ml/min/1.73 sqM)
[2023-09-20] MEDS: amLODIPine 5 MG TAB PO SCH (08:12)
[2023-09-20] MEDS: lisinopriL 20 MG TAB PO SCH (08:12)
[2023-09-20] MEDS: PRASUGREL 10 MG TAB PO SCH (08:12)
[2023-09-20 09:01] VITALS: BP 160/91; PULSE 72; RESP 16; TEMP 98.1
--- NOTE | 2023-09-20 09:27 | P.DS ---
Providers Attending physician: Qamar Lemos Consults: 09/19/23 13:08 Consult Physician Routine Consulting Provider: [facility] Consult Reason/Comments: Post Interventional patient Do you want consulting provider notified?: Already Contacted Primary care physician: Geoffrey White [facility] Course: The patient is a pleasant 57-year-old gentleman who underwent yesterday PCI of the LAD He was seen and evaluated this morning. He is asymptomatic and hemodynamically stable beside the pressure is consistent with stage II hypertension and we will address the need to adjust the blood pressure medications. Clinically he is do ing well. He is going to be discharged home on dual antiplatelet therapy along with high intensity statin with holding the metformin for additional 48 hours. The examination overall is unremarkable Plan - Discharge Summary Discharge Rx Participant: No New Discharge Prescriptions: New Aspirin 81 mg PO DAILY #90 tab Atorvastatin [Lipitor] 80 mg PO HS #90 tab Prasugrel [Effient] 10 mg PO DAILY #90 tab Continue amLODIPine BESYLATE/BENAZEPRIL [Lotrel 5-40 MG] 1 cap PO QAM Semaglutide [Ozempic] 0.25 mg SQ SA Aspirin 325 mg PO DAILY PRN PRN Reason: Pain Discontinued metFORMIN HCL [Glucophage] 500 mg PO BID Discharge Medication List amLODIPine BESYLATE/BENAZEPRIL [Lotrel 5-40 MG] 1 cap PO QAM 04/27/18 [History] Aspirin 325 mg PO DAILY PRN 09/15/23 [History] Semaglutide [Ozempic] 0.25 mg SQ SA 09/15/23 [History] Aspirin 81 mg PO DAILY #90 tab 09/20/23 [Rx] Atorvastatin [Lipitor] 80 mg PO HS #90 tab 09/20/23 [Rx] Prasugrel [Effient] 10 mg PO DAILY #90 tab 09/20/23 [Rx] Follow up Appointment(s)/Referral(s): Qamar Lemos MD [STAFF PHYSICIAN] - 1 Week (THE OFFICE WILL CALL YOU WITH AN APPOINTMENT DATE AND TIME) Patient Instructions/Handouts: Moderate Sedation (DC), After Radial Heart Catheterization (GEN) Activity/Diet/Wound Care/Special Instructions: *NO LIFTING, PUSHING, OR PULLING ANYTHING OVER 5 POUNDS FOR 5 DAYS *NO DRIVING FOR 3 DAYS *YOU CAN REMOVE YOUR DRESSING TOMORROW BUT DO NOT SUBMERSE YOUR PUNCTURE SITE IN WATER FOR A FEW DAYS TO PREVENT INFECTION - SO NO TUB BATHS, POOLS, HOT TUBS, DISHES...ETC *ANY SIGNS OF BLEEDING (HARDNESS, SWELLING, OR EXCESSIVE BRUISING) HOLD PRESSURE ON YOUR PUNCTURE SITE AND COME TO THE NEAREST EMERGENCY ROOM TO GET YOUR PUNCTURE SITE LOOKED AT - DO NOT DRIVE YOURSELF! EITHER CALL EMS OR HAVE SOMEONE DRIVE YOU!
[2023-09-24] MEDS ORDERED: NON FORMULARY DRUG (Semaglutide [Ozempic] 0.25 MG/0.368 ML Pen.Injctr) SQ SCH (09:00)
== END 2023-09-20 11:09 | disposition home or self-care (01) ==
LOC: CATHCVL 10:03 → 6NMEDSUR 13:07 → CATHCVL 09-20 11:09
PROVIDERS: ATTEND Internal Medicine Interventional Cardiology
DX: I25.10 Atherosclerotic heart disease of native coronary artery without angina pectoris (principal); I10 Essential (primary) hypertension; E78.5 Hyperlipidemia, unspecified; E11.9 Type 2 diabetes mellitus without complications; Z82.49 Family history of ischemic heart disease and other diseases of the circulatory system; Z79.82 Long term (current) use of aspirin; Z95.5 Presence of coronary angioplasty implant and graft; Z79.899 Other long term (current) drug therapy
CPT/HCPCS: 92978; 93458; 76937; 80048; 82565; 85025; C9600; J2250; J2001; J1644; Q9967; J2305